=== PATIENT | female | born 1940 | race Caucasian/White ===

== ENCOUNTER 2017-08-18 06:27 | Day surgery (SDC) | payer OTHER ==
[~2017-08-18] VITALS: Ht 154.9 cm; Wt 83.9 kg
[~2017-08-18 06:27] MED LIST: DAILY MULTIPLE1 EACH PO; LEVOTHYROXINE125 MCG PO; LO-DOSE ASPIRIN81 M1 PO; METOPROLOL TART25 MG PO; SIMVASTATIN40 MG PO; VITAMIN B-121000 MC3 PO; VITAMIN D2000 UNIT PO
[2017-08-18 07:20] VITALS: BP 120/65
[2017-08-18 11:00] VITALS: BP 180/75
== END 2017-08-18 11:30 | disposition home or self-care (01) ==
LOC: SDC 06:27
DX: H35.342 Macular cyst, hole, or pseudohole, left eye (principal); I10 Essential (primary) hypertension; I25.10 Atherosclerotic heart disease of native coronary artery without angina pectoris; E03.9 Hypothyroidism, unspecified; E78.5 Hyperlipidemia, unspecified; Z79.82 Long term (current) use of aspirin
CPT/HCPCS: J0690; J0713; J3300

== ENCOUNTER 2017-10-13 06:25 | Day surgery (SDC) | payer OTHER ==
[~2017-10-13] VITALS: Ht 162.6 cm; Wt 83.9 kg
[~2017-10-13 06:25] MED LIST changes: -DAILY MULTIPLE1 EACH PO; +ONE DAILY FOR1 EAC3 PO; +VITAMIN B-6100 MG PO; -VITAMIN D2000 UNIT PO; +VITAMIN D31000 UNI2 PO
[2017-10-13 06:43] VITALS: BP 147/66
[2017-10-13 10:34] VITALS: BP 140/63
[2017-10-13 11:05] VITALS: BP 114/57
== END 2017-10-13 11:20 | disposition home or self-care (01) ==
LOC: SDC 06:25
DX: H35.342 Macular cyst, hole, or pseudohole, left eye (principal); I10 Essential (primary) hypertension; E03.9 Hypothyroidism, unspecified; E78.2 Mixed hyperlipidemia; I35.0 Nonrheumatic aortic (valve) stenosis; I25.10 Atherosclerotic heart disease of native coronary artery without angina pectoris; Z79.82 Long term (current) use of aspirin
CPT/HCPCS: J0690; J0713; J2405; J3300